=== PATIENT | female | born 1945 | race Caucasian/White ===

== ENCOUNTER 2018-09-13 12:56 | Outpatient (CLI) | payer MEDICARE ==
--- NOTE | 2018-09-13 14:42 | ULT ---
TRANSABDOMINAL PELVIC ULTRASOUND WITH DOPPLER: 09/13/2018 PROVIDED CLINICAL HISTORY: Pelvic mass. FINDINGS: The uterus measures about 6.2 x 2.4 x 3.6 cm and demonstrates an unremarkable transabdominal sonograp hic appearance. Endometrial thickness is about 4 to 5 mm. The right ovary is not distinctly identified. There is a cystic mass present in the left adnexa, pepito suring at least 4.1 cm. Color Doppler and spectral analysis of the periphery of this cystic structur e demonstrates flow. There is no significant free fluid present. IMPRESSION: A 4.1 cm left adnexal cystic mass. The possibility of a cystic ovarian neoplasm should be considered . Further evaluation with pelvic MRI may be useful. POS: TYRONE
--- NOTE | 2018-09-13 15:18 | RAD ---
RADIOGRAPH ABDOMEN 2 VIEWS: Date: 09/13/18 Time: 1402 hours HISTORY: 73-year-old female with abdominal distention and pelvic mass. COMPARISON: None available. FINDINGS: There is a moderate to large retrocardiac mass with air fluid level. There is a large volume of colon ic stool. No pneumoperitoneum. No differential air fluid levels. Gas in multiple nondilated loops of small intestine and large intestine. IMPRESSION: 1. Moderate-large hiatal hernia. 2. Constipation. 3. No compelling evidence of high grade small bowel obstruction. 4. For the stated history of pelvic mass, CT should be considered. POS: TYRONE
== END 2018-09-13 12:57 | disposition home or self-care (01) ==
LOC: ULT 12:56
PROVIDERS: ATTEND Family Medicine
DX: R19.00 Intra-abdominal and pelvic swelling, mass and lump, unspecified site (principal); R14.0 Abdominal distension (gaseous); K44.9 Diaphragmatic hernia without obstruction or gangrene; K59.00 Constipation, unspecified; N83.8 Other noninflammatory disorders of ovary, fallopian tube and broad ligament
CPT/HCPCS: 74019; 76856; 93976

== ENCOUNTER 2018-10-03 13:20 | Outpatient (CLI) | payer MEDICARE ==
--- NOTE | 2018-10-03 18:12 | MRI ---
MRI OF THE PELVIS WITH AND WITHOUT IV CONTRAST 10/03/18 INDICATION: Adnexal mass. COMPARISON: Pelvic ultrasound dated 09/13/19. TECHNIQUE: Multiplanar and multisequence MR images were obtained of the pelvis with and without contrast utilizi ng 20 mL of Multihance. ] FINDINGS: There is a 4.6 x 4.1 cm T2 hyperintense nonenhancing cystic lesion involving the left adnexa. Additio nal 8 mm cyst is seen adjacent to this larger cyst within the left adnexa. There is peripheral enhanc ement of the associated adnexal tissue. There is partial visualization of a nonenhancing cystic lesio n involving the inferior pole of the right kidney measuring 5.2 cm. This is suspicious for a renal po le cyst; however, this is incompletely characterized on the current study. No pathologically enlarged lymph nodes are evident. There is scattered degenerative change of both hips as well as the SI joint s and lower lumbar spine. No free fluid is demonstrated. There are a few scattered diverticula involv ing the sigmoid colon. IMPRESSION: 1. Probable ovarian inclusion cyst involving the left adnexa. Would recommend a followup pelvic ultrasound in one year to document stability. 2. Cystic lesion involving the lower pole of the right kidney, incompletely characterized. Follo wup renal ultrasound is recommended for additional characterization. 3. Colonic diverticulosis. POS: TYRONE
== END 2018-10-03 13:21 | disposition home or self-care (01) ==
LOC: SCSMRI 13:20
PROVIDERS: ATTEND Family Medicine
DX: N94.9 Unspecified condition associated with female genital organs and menstrual cycle (principal); N28.89 Other specified disorders of kidney and ureter; K57.30 Diverticulosis of large intestine without perforation or abscess without bleeding
CPT/HCPCS: 72197

== ENCOUNTER 2018-10-30 10:43 | Outpatient (CLI) | payer MEDICARE ==
--- NOTE | 2018-10-30 13:01 | ULT ---
BILATERAL RENAL ULTRASOUND: HISTORY: Right renal cyst seen on MRI of 10/03/2018. FINDINGS: The right kidney measures 9.5 cm in length, and the left kidney measures 12.5 cm in length. No hydro nephrosis is seen on either side. There is a 3.6 x 5.2 x 4.1 cm cyst arising from the inferior pole of the right kidney. A 2.5 cm parapelvic cyst with a prominent dilated renal pelvis is seen on the left. There is a 9 x 6 x 1.3 cm, nonshadowing, echogenic focus in the superior pole of the left kidney. This may represent an artifact versus a calculus. The urinary bladder is unremarkable. IMPRESSION: 1. Right renal cyst. 2. Left-sided parapelvic cyst versus dilated renal pelvis. 3. Nonshadowing echogenic focus in the superior pole of the left kidney, which may be due to an geneva fact, vascular calcifications, or nonobstructing calculus. POS: TYRONE
== END 2018-10-30 10:44 | disposition home or self-care (01) ==
LOC: SCSULT 10:43
PROVIDERS: ATTEND Family Medicine
DX: N28.1 Cyst of kidney, acquired (principal); R93.422 Abnormal radiologic findings on diagnostic imaging of left kidney
CPT/HCPCS: 76770